=== PATIENT | male | born 1980 | race Caucasian/White ===

== ENCOUNTER 2019-08-29 04:16 | Emergency (ER) | payer MEDICAID ==
[~2019-08-29] VITALS: Ht 172.7 cm; Wt 76.2 kg
[2019-08-29 04:19] VITALS: BP_SYST 123
[2019-08-29 05:00] VITALS: BP_SYST 123
== END 2019-08-29 05:00 ==
LOC: SED 04:16
DX: M79.18 Myalgia, other site (principal)
CPT/HCPCS: 99283